=== PATIENT | male | born 1945 | race Caucasian/White ===

== ENCOUNTER 2021-02-01 15:38 | Inpatient (IN) ==
[2021-02-01] MEDS ORDERED: NS 0.9% 1000 ml BAG 1,000 ML IV.FLUID IV ONE (16:13)
[2021-02-01 17:29] LABS: ABS Lymphocytes 1.3 10^3/ul (1.0-4.8); ABS Monocytes 1.1 10^3/ul (0-0.8); ABS Neutrophils 8.9 10^3/ul (1.5-7.7); Hematocrit 41 % (42-52); Hemoglobin 14.3 g/dL (14.0-18.0); Lymphocyte % 11.3 %; Mean Corpuscular HGB Conc 35 g/dL (31-36); Mean Corpuscular Hemoglobin 35 pg (27-31); Mean Corpuscular Volume 99 fL (80-94); Mean Platelet Volume 7.2 fL (7.4-10.4); Platelet Count 153 10^3/uL (150-450); Red Blood Count 4.15 10^6 /uL (4.18-5.48); Red Cell Distribution Width 13 % (10-15); White Blood Count 11.2 10^3/uL (3.5-10.8)
[2021-02-01 17:44] LABS: ALT 21 U/L (7-52); AST 26 U/L (13-39); Albumin 3.8 g/dL (3.2-5.2); Albumin/Globulin Ratio 1.4 (1-3); Alkaline Phosphatase 50 U/L (35-149); Anion Gap 6 mmol/L (2-11); Blood Urea Nitrogen 20 mg/dL (6-24); C Reactive Protein 114.15 mg/L (<8.01); CO2 Carbon Dioxide 28 mmol/L (22-32); Calcium 8.7 mg/dL (8.6-10.3); Chloride 101 mmol/L (101-111); EGFR African American 72.4 (>60); EGFR Non-African American 59.9 (>60); Globulin 2.8 g/dL (2-4); Glucose 118 mg/dL (70-100); Sodium 135 mmol/L (135-145); Total Protein 6.6 g/dL (6.4-8.9)
[2021-02-01 17:45] LABS: Troponin I 0.01 ng/mL (<0.03)
[2021-02-01 17:46] LABS: INR 1.25 (0.82-1.09)
[2021-02-01 19:11] LABS: Urine Appearance Clear; Urine Bilirubin Negative (Negative); Urine Blood 1+ (Negative); Urine Color Yellow; Urine Glucose Negative (Negative); Urine Ketones Trace (Negative); Urine Nitrite Negative (Negative); Urine Protein Negative (Negative); Urine Specific Gravity 1.015 (1.002-1.030); Urine Urobilinogen Negative (Negative)
[2021-02-01 19:30] LABS: Urine Bacteria Absent (Absent); Urine Red Blood Cell Trace(0-2/hpf) (Absent); Urine Squamous Epithelial Cell Present (Absent); Urine White Blood Cell Trace(0-5/hpf) (Absent)
[2021-02-01] MEDS ORDERED: Ondansetron 4 mg VIAL 2 MG/ML 2 ml VIAL IV PRN (21:07)
[2021-02-01] MEDS ORDERED: Lactated Ringers 1000 ml BAG 1,000 ML IV ONE (21:14)
[2021-02-01] MEDS ORDERED: cefTRIAXone 1 gm/50 mL NS BAG 1 GM/50 ML BAG IV ONE (21:17)
[2021-02-01 21:56] LABS: Folate > 20.00 ng/mL (5.90-24.80)
[2021-02-01 21:57] LABS: Vitamin B12 485 pg/mL (180-914)
[2021-02-02 00:03] LABS: Influenza A Molecular Negative (Negative); Influenza B Molecular Negative (Negative)
[2021-02-02] MEDS: Enoxaparin 40 MG/0.4 ML SYR SUBCUT SCH ×2 (00:27→21:10)
[2021-02-02] MEDS: Mometasone/Formoter 200/5 MDI INH SCH ×3 (01:33→20:28)
[2021-02-02 07:46] LABS: ABS Lymphocytes 1.6 10^3/ul (1.0-4.8); ABS Monocytes 0.9 10^3/ul (0-0.8); Hematocrit 36 % (42-52); Hemoglobin 12.4 g/dL (14.0-18.0); Lymphocyte % 11.2 %; Mean Corpuscular HGB Conc 34 g/dL (31-36); Mean Corpuscular Hemoglobin 34 pg (27-31); Mean Corpuscular Volume 99 fL (80-94); Mean Platelet Volume 7.2 fL (7.4-10.4); Platelet Count 132 10^3/uL (150-450); Red Blood Count 3.67 10^6 /uL (4.18-5.48); Red Cell Distribution Width 13 % (10-15); White Blood Count 14.6 10^3/uL (3.5-10.8)
[2021-02-02 07:59] LABS: Albumin 3.1 g/dL (3.2-5.2); Albumin/Globulin Ratio 1.3 (1-3); C Reactive Protein 136.89 mg/L (<8.01); Calcium 7.8 mg/dL (8.6-10.3); EGFR African American 91.9 (>60); Globulin 2.4 g/dL (2-4); Indirect Bilirubin 0.4 mg/dL (0.3-1.0); Potassium 3.8 mmol/L (3.5-5.0); Total Bilirubin 0.5 mg/dL (0.2-1.0); Total Protein 5.5 g/dL (6.4-8.9)
[2021-02-02] MEDS ORDERED: Acyclovir IV 500 MG/10 ML 100 ML VIAL (500 MG) IVPB SCH (09:00)
[2021-02-02] MEDS ORDERED: CMCS: OMEGA-3 FATTY ACID 1000 mg(NF) PO SCH (09:00)
[2021-02-02] MEDS ORDERED: Albuterol/Ipratropium NEB.SOL (2.5/0.5 MG) 3 ML NEB.SOLN INH ONE (09:16)
[2021-02-02] MEDS ORDERED: Albuterol HFA INHALER 8 gm MDI INH PRN (09:17)
[2021-02-02] MEDS: Acyclovir IV 600 MG in NS 0.9% 100 ml BAG 100 ML IVPB SCH ×2 (11:15→17:19)
[2021-02-02] MEDS: DOXYcycline 100 MG in NS 0.9% 250 ml 250 ML IVPB SCH ×2 (12:36→23:15)
[2021-02-02] MEDS: NS 0.9% 1000 ml BAG 1,000 ML IV SCH (14:08)
[2021-02-02] MEDS: cefTRIAXone 2 GM ADDV.VIAL 2 GM in NS 0.9% 100 ml BAG 100 ML IV SCH (18:17)
[2021-02-02] MEDS ORDERED: Thiamine 100 MG/ML 2 ml VIAL 250 MG in NS 0.9% 100 ml BAG 100 ML IV SCH (20:00)
[2021-02-03] MEDS: Acyclovir IV 600 MG in NS 0.9% 100 ml BAG 100 ML IVPB SCH ×3 (01:55→17:29)
[2021-02-03] MEDS: cefTRIAXone 2 GM ADDV.VIAL 2 GM in NS 0.9% 100 ml BAG 100 ML IV SCH ×2 (05:32→18:52)
[2021-02-03 06:41] LABS: ABS Lymphocytes 1.6 10^3/ul (1.0-4.8); ABS Monocytes 0.6 10^3/ul (0-0.8); ABS Neutrophils 5.9 10^3/ul (1.5-7.7); Eosinophil % 0.2 %; Hematocrit 35 % (42-52); Hemoglobin 11.9 g/dL (14.0-18.0); Lymphocyte % 19.5 %; Mean Corpuscular HGB Conc 34 g/dL (31-36); Mean Corpuscular Hemoglobin 34 pg (27-31); Mean Corpuscular Volume 99 fL (80-94); Mean Platelet Volume 7.2 fL (7.4-10.4); Platelet Count 123 10^3/uL (150-450); Red Blood Count 3.51 10^6 /uL (4.18-5.48); Red Cell Distribution Width 13 % (10-15); White Blood Count 8.1 10^3/uL (3.5-10.8)
[2021-02-03 07:03] LABS: Calcium 7.5 mg/dL (8.6-10.3); EGFR African American 108.7 (>60); EGFR Non-African American 89.8 (>60); Magnesium 1.7 mg/dL (1.9-2.7); Potassium 3.5 mmol/L (3.5-5.0)
[2021-02-03] MEDS: Mometasone/Formoter 200/5 MDI INH SCH ×2 (07:14→20:07)
[2021-02-03] MEDS: CMCS: OMEGA-3 FATTY ACID 1000 mg(NF) PO SCH (10:48)
[2021-02-03] MEDS ORDERED: Magnesium Sulfate 2 gm BAG 2 GM/50 ML BAG IVPB ONE (11:13)
[2021-02-03] MEDS: DOXYcycline 100 MG in NS 0.9% 250 ml 250 ML IVPB SCH ×2 (12:35→22:39)
[2021-02-03] MEDS: NS 0.9% 1000 ml BAG 1,000 ML IV SCH (12:39)
[2021-02-03] MEDS: Enoxaparin 40 MG/0.4 ML SYR SUBCUT SCH (22:39)
[2021-02-03 22:52] LABS: Anaplasma phagocytophilum Negative (Negative); B. miyamotoi PCR, B Negative (Negative); Babesia divergens/MO-1 Negative (Negative); Babesia ducani Negative (Negative); Ehrlichia chaffeensis Negative (Negative); Ehrlichia ewingii/canis Negative (Negative); Ehrlichia muris eauclairensis Negative (Negative)
[2021-02-04] MEDS: NS 0.9% 1000 ml BAG 1,000 ML IV SCH ×2 (00:58→16:49)
[2021-02-04] MEDS: Acyclovir IV 600 MG in NS 0.9% 100 ml BAG 100 ML IVPB SCH ×3 (02:58→18:00)
[2021-02-04] MEDS: cefTRIAXone 2 GM ADDV.VIAL 2 GM in NS 0.9% 100 ml BAG 100 ML IV SCH ×2 (05:16→17:22)
[2021-02-04 05:37] LABS: Hematocrit 36 % (42-52); Hemoglobin 12.3 g/dL (14.0-18.0); Mean Corpuscular HGB Conc 35 g/dL (31-36); Mean Corpuscular Hemoglobin 34 pg (27-31); Mean Corpuscular Volume 98 fL (80-94); Mean Platelet Volume 7.1 fL (7.4-10.4); Platelet Count 139 10^3/uL (150-450); Red Blood Count 3.64 10^6 /uL (4.18-5.48); Red Cell Distribution Width 13 % (10-15); White Blood Count 6.8 10^3/uL (3.5-10.8)
[2021-02-04 05:53] LABS: C Reactive Protein 126.46 mg/L (<8.01); Calcium 7.5 mg/dL (8.6-10.3); EGFR African American 110.2 (>60); EGFR Non-African American 91.1 (>60); Potassium 3.3 mmol/L (3.5-5.0)
[2021-02-04] MEDS: Mometasone/Formoter 200/5 MDI INH SCH ×2 (06:59→19:51)
[2021-02-04] MEDS ORDERED: CALCIUM GLUCONATE 1GM/50ML NS 1 GM/50 ML BAG IV ONE (09:30)
[2021-02-04] MEDS: CMCS: OMEGA-3 FATTY ACID 1000 mg(NF) PO SCH (09:32)
[2021-02-04] MEDS ORDERED: Potassium Chlor 20 meq TAB.ER PO SCH (10:00)
[2021-02-04] MEDS ORDERED: Potassium Chloride LIQUID 20 MEQ/15 ML LIQUID PO ONE (12:00)
[2021-02-04] MEDS: DOXYcycline 100 MG in NS 0.9% 250 ml 250 ML IVPB SCH ×2 (12:32→22:02)
[2021-02-04] MEDS: Enoxaparin 40 MG/0.4 ML SYR SUBCUT SCH (22:02)
[2021-02-05] MEDS: Acyclovir IV 600 MG in NS 0.9% 100 ml BAG 100 ML IVPB SCH ×3 (02:47→17:30)
[2021-02-05 05:15] LABS: ABS Eosinophils 0.1 10^3/ul (0-0.6); ABS Monocytes 0.7 10^3/ul (0-0.8); ABS Neutrophils 4.9 10^3/ul (1.5-7.7); Eosinophil % 0.7 %; Hematocrit 36 % (42-52); Hemoglobin 12.7 g/dL (14.0-18.0); Lymphocyte % 25.9 %; Mean Corpuscular HGB Conc 35 g/dL (31-36); Mean Corpuscular Hemoglobin 34 pg (27-31); Mean Corpuscular Volume 98 fL (80-94); Mean Platelet Volume 7.9 fL (7.4-10.4); Platelet Count 163 10^3/uL (150-450); Red Blood Count 3.71 10^6 /uL (4.18-5.48); Red Cell Distribution Width 13 % (10-15); White Blood Count 7.7 10^3/uL (3.5-10.8)
[2021-02-05 05:30] LABS: Calcium 7.9 mg/dL (8.6-10.3); EGFR African American 122.2 (>60); Magnesium 1.9 mg/dL (1.9-2.7); Potassium 3.6 mmol/L (3.5-5.0)
[2021-02-05] MEDS: cefTRIAXone 2 GM ADDV.VIAL 2 GM in NS 0.9% 100 ml BAG 100 ML IV SCH (05:35)
[2021-02-05] MEDS: CMCS: OMEGA-3 FATTY ACID 1000 mg(NF) PO SCH (08:01)
[2021-02-05] MEDS: Mometasone/Formoter 200/5 MDI INH SCH ×2 (08:15→20:04)
[2021-02-05] MEDS ORDERED: Potassium Chlor 20 meq TAB.ER PO ONE (08:16)
[2021-02-05] MEDS: NS 0.9% 1000 ml BAG 1,000 ML IV SCH (10:37)
[2021-02-05] MEDS: DOXYcycline 100 MG in NS 0.9% 250 ml 250 ML IVPB SCH (13:15)
[2021-02-05 21:09] LABS: IgG Immunoblot Negative (Negative); IgM Immunoblot Negative (Negative)
[2021-02-05] MEDS: Enoxaparin 40 MG/0.4 ML SYR SUBCUT SCH (22:53)
[2021-02-06] MEDS: Acyclovir IV 600 MG in NS 0.9% 100 ml BAG 100 ML IVPB SCH ×3 (01:38→16:59)
[2021-02-06] MEDS: NS 0.9% 1000 ml BAG 1,000 ML IV SCH ×2 (05:07→15:30)
[2021-02-06 06:50] LABS: ABS Eosinophils 0.1 10^3/ul (0-0.6); ABS Lymphocytes 2.5 10^3/ul (1.0-4.8); ABS Monocytes 0.7 10^3/ul (0-0.8); ABS Neutrophils 3.6 10^3/ul (1.5-7.7); Hematocrit 33 % (42-52); Hemoglobin 11.9 g/dL (14.0-18.0); Lymphocyte % 36.1 %; Mean Corpuscular HGB Conc 36 g/dL (31-36); Mean Corpuscular Hemoglobin 35 pg (27-31); Mean Corpuscular Volume 98 fL (80-94); Mean Platelet Volume 7.4 fL (7.4-10.4); Nucleated Red Blood Cells % 0.1; Platelet Count 181 10^3/uL (150-450); Red Blood Count 3.38 10^6 /uL (4.18-5.48); Red Cell Distribution Width 13 % (10-15)
[2021-02-06 07:06] LABS: Albumin 2.8 g/dL (3.2-5.2); Albumin/Globulin Ratio 1.2 (1-3); C Reactive Protein 65.64 mg/L (<8.01); Calcium 7.8 mg/dL (8.6-10.3); EGFR African American 130.2 (>60); EGFR Non-African American 107.6 (>60); Globulin 2.4 g/dL (2-4); Magnesium 1.9 mg/dL (1.9-2.7); Potassium 3.7 mmol/L (3.5-5.0); Total Bilirubin 0.4 mg/dL (0.2-1.0); Total Protein 5.2 g/dL (6.4-8.9)
[2021-02-06] MEDS: Mometasone/Formoter 200/5 MDI INH SCH ×2 (08:51→20:15)
[2021-02-06] MEDS: CMCS: OMEGA-3 FATTY ACID 1000 mg(NF) PO SCH (09:32)
[2021-02-06] MEDS ORDERED: Potassium Chlor 10 meq TAB PO ONE (09:57)
[2021-02-06] MEDS: Enoxaparin 40 MG/0.4 ML SYR SUBCUT SCH (20:37)
[2021-02-07] MEDS ORDERED: diPHENhydraMINE 25 mg TAB PO ONE (00:11)
[2021-02-07] MEDS: Acyclovir IV 600 MG in NS 0.9% 100 ml BAG 100 ML IVPB SCH ×2 (01:25→13:03)
[2021-02-07] MEDS: NS 0.9% 1000 ml BAG 1,000 ML IV SCH ×2 (02:32→13:03)
[2021-02-07] MEDS: Mometasone/Formoter 200/5 MDI INH SCH ×2 (07:15→19:15)
[2021-02-07] MEDS: CMCS: OMEGA-3 FATTY ACID 1000 mg(NF) PO SCH (10:03)
[2021-02-07] MEDS ORDERED: Polyethylene Glycol 3350 17 GM PACKET PO PRN (20:45)
[2021-02-07] MEDS: Enoxaparin 40 MG/0.4 ML SYR SUBCUT SCH (21:30)
[2021-02-08] MEDS: Mometasone/Formoter 200/5 MDI INH SCH ×2 (09:12→20:02)
[2021-02-08] MEDS: CMCS: OMEGA-3 FATTY ACID 1000 mg(NF) PO SCH (09:24)
[2021-02-08] MEDS: Enoxaparin 40 MG/0.4 ML SYR SUBCUT SCH (23:59)
[2021-02-09] MEDS: Mometasone/Formoter 200/5 MDI INH SCH (09:23)
[2021-02-09] MEDS: CMCS: OMEGA-3 FATTY ACID 1000 mg(NF) PO SCH (09:46)
[2021-02-09 10:07] VITALS: BP 135/59
== END 2021-02-09 11:10 | disposition home health service (06) | DRG 871 ==
LOC: ED 15:38 → MED 15:38
PROVIDERS: ADMIT Hospitalist; ATTEND Internal Medicine

== ENCOUNTER 2021-03-28 18:27 | Inpatient (IN) ==
[2021-03-28 21:46] LABS: Hematocrit 44 % (42-52); Mean Corpuscular HGB Conc 34 g/dL (31-36); Mean Corpuscular Hemoglobin 34 pg (27-31); Mean Corpuscular Volume 99 fL (80-94); Mean Platelet Volume 7.5 fL (7.4-10.4); Platelet Count 223 10^3/uL (150-450); Red Blood Count 4.39 10^6 /uL (4.18-5.48); Red Cell Distribution Width 14 % (10-15); Venous Bicarbonate HCO3 25.1 mmol/L (24-28); White Blood Count 25.7 10^3/uL (3.5-10.8)
[2021-03-28 22:05] LABS: Influenza A Molecular Negative (Negative); Influenza B Molecular Negative (Negative); Rapid COVID-19 Molecular Undetected (Undetected)
[2021-03-28 22:05] LABS: ALT 19 U/L (7-52); Albumin 4.4 g/dL (3.2-5.2); Albumin/Globulin Ratio 1.2 (1-3); Alkaline Phosphatase 60 U/L (35-149); Blood Urea Nitrogen 25 mg/dL (6-24); CO2 Carbon Dioxide 28 mmol/L (22-32); Calcium 9.1 mg/dL (8.6-10.3); Chloride 100 mmol/L (101-111); EGFR African American 80.2 (>60); EGFR Non-African American 66.3 (>60); Globulin 3.6 g/dL (2-4); Glucose 80 mg/dL (70-100); Sodium 136 mmol/L (135-145)
[2021-03-28 22:13] LABS: Anion Gap 8 mmol/L (2-11); Troponin I 0.03 ng/mL (<0.03)
[2021-03-28] MEDS ORDERED: Piperacillin/Tazobac ADVAN 3.375 GM in NS 0.9% 100 ml BAG 100 ML IVPB ONE (22:21)
[2021-03-28] MEDS ORDERED: Lactated Ringers 1000 ml BAG IV.FLUID IV ONE (22:21)
[2021-03-28 22:23] LABS: Ferritin 161.8 ng/mL (24-336)
[2021-03-28 22:24] LABS: Activated Partial Thrombo Time 35.1 seconds (26.0-38.0); INR 1.19 (0.86-1.15)
[2021-03-28 22:24] LABS: ABS Basophils 0.1 10^3/ul (0-0.2); ABS Eosinophils 0.1 10^3/ul (0-0.6); ABS Lymphocytes 2.9 10^3/ul (1.0-4.8); ABS Monocytes 1.9 10^3/ul (0-0.8); ABS Neutrophils 20.8 10^3/ul (1.5-7.7); Eosinophil % 0.4 %; Lymphocyte % 11.1 %
[2021-03-28] MEDS ORDERED: Vancomycin 1,250 MG in NS 0.9% 250 ml 250 ML IVPB ONE (23:00)
[2021-03-28] MEDS ORDERED: Lactated Ringers 1000 ml BAG 1,000 ML IV ONE (23:38)
[2021-03-28] MEDS ORDERED: Ondansetron 4 mg VIAL 2 MG/ML 2 ml VIAL IV PRN (23:38)
[2021-03-28] MEDS ORDERED: Albuterol HFA INHALER 8 gm MDI INH PRN (23:38)
[2021-03-29 00:51] LABS: Urine Appearance Clear; Urine Bilirubin Negative (Negative); Urine Blood Negative (Negative); Urine Color Yellow; Urine Glucose Negative (Negative); Urine Ketones Negative (Negative); Urine Nitrite Negative (Negative); Urine Protein 1+(30 mg/dL) (Negative); Urine Specific Gravity 1.021 (1.002-1.030); Urine Urobilinogen Negative (Negative)
[2021-03-29 01:19] LABS: Urine Bacteria Absent (Absent); Urine Red Blood Cell Trace(0-2/hpf) (Absent); Urine Squamous Epithelial Cell Present (Absent); Urine White Blood Cell Trace(0-5/hpf) (Absent)
[2021-03-29 04:35] LABS: ABS Basophils 0.1 10^3/ul (0-0.2); ABS Eosinophils 0.1 10^3/ul (0-0.6); ABS Lymphocytes 2.8 10^3/ul (1.0-4.8); ABS Monocytes 1.2 10^3/ul (0-0.8); Eosinophil % 0.8 %; Hematocrit 37 % (42-52); Hemoglobin 12.6 g/dL (14.0-18.0); Lymphocyte % 14.6 %; Mean Corpuscular HGB Conc 34 g/dL (31-36); Mean Corpuscular Hemoglobin 34 pg (27-31); Mean Corpuscular Volume 100 fL (80-94); Mean Platelet Volume 6.9 fL (7.4-10.4); Platelet Count 189 10^3/uL (150-450); Red Blood Count 3.75 10^6 /uL (4.18-5.48); Red Cell Distribution Width 13 % (10-15); White Blood Count 19.3 10^3/uL (3.5-10.8)
[2021-03-29 04:41] LABS: Calcium 8.2 mg/dL (8.6-10.3)
[2021-03-29 04:42] LABS: INR 1.32 (0.86-1.15)
[2021-03-29 04:47] LABS: EGFR African American 82.9 (>60); EGFR Non-African American 68.5 (>60)
[2021-03-29] MEDS: Heparin 5000 UNITS/ML 1 mL VIAL SUBCUT SCH ×3 (06:26→21:12)
[2021-03-29] MEDS: cefTRIAXone 1 gm/50 mL NS BAG 1 GM/50 ML BAG IVPB SCH (06:26)
[2021-03-29] MEDS: Multivitamins/Minerals TAB PO SCH (08:34)
[2021-03-29] MEDS: CMCS: OMEGA-3 FATTY ACID 1000 mg(NF) PO SCH (08:34)
[2021-03-29] MEDS: Mometasone/Formoter 200/5 MDI INH SCH ×2 (09:32→21:33)
[2021-03-29 13:32] LABS: Erythrocyte Sed Rate 47 mm/Hr (0-19)
[2021-03-29] MEDS ORDERED: Iohexol 300 (CONTRAST) 10 ML SDV IV ONE (19:00)
[2021-03-30 01:04] LABS: HIV 4th Generation Nonreactive (Nonreactive)
[2021-03-30] MEDS: Heparin 5000 UNITS/ML 1 mL VIAL SUBCUT SCH ×3 (06:01→23:18)
[2021-03-30] MEDS: cefTRIAXone 1 gm/50 mL NS BAG 1 GM/50 ML BAG IVPB SCH (06:02)
[2021-03-30 06:13] LABS: ABS Eosinophils 0.2 10^3/ul (0-0.6); ABS Lymphocytes 2.4 10^3/ul (1.0-4.8); ABS Monocytes 1.2 10^3/ul (0-0.8); ABS Neutrophils 8.9 10^3/ul (1.5-7.7); Eosinophil % 1.3 %; Hematocrit 35 % (42-52); Hemoglobin 11.7 g/dL (14.0-18.0); Lymphocyte % 18.9 %; Mean Corpuscular HGB Conc 33 g/dL (31-36); Mean Corpuscular Hemoglobin 34 pg (27-31); Mean Corpuscular Volume 101 fL (80-94); Mean Platelet Volume 7.3 fL (7.4-10.4); Platelet Count 173 10^3/uL (150-450); Red Blood Count 3.48 10^6 /uL (4.18-5.48); Red Cell Distribution Width 13 % (10-15); White Blood Count 12.8 10^3/uL (3.5-10.8)
[2021-03-30 06:32] LABS: EGFR Non-African American 81.8 (>60); Potassium 3.6 mmol/L (3.5-5.0)
[2021-03-30] MEDS: CMCS: OMEGA-3 FATTY ACID 1000 mg(NF) PO SCH (07:40)
[2021-03-30] MEDS: Multivitamins/Minerals TAB PO SCH (07:40)
[2021-03-30] MEDS: Mometasone/Formoter 200/5 MDI INH SCH ×2 (08:38→22:27)
[2021-03-30 22:52] LABS: IgG Immunoblot Negative (Negative); IgM Immunoblot Positive (Negative)
[2021-03-31 04:02] LABS: Anaplasma phagocytophilum Negative (Negative); B. miyamotoi PCR, B Negative (Negative); Babesia divergens/MO-1 Negative (Negative); Babesia ducani Negative (Negative); Ehrlichia chaffeensis Negative (Negative); Ehrlichia ewingii/canis Negative (Negative); Ehrlichia muris eauclairensis Negative (Negative)
[2021-03-31 04:20] LABS: ABS Eosinophils 0.2 10^3/ul (0-0.6); ABS Lymphocytes 2.2 10^3/ul (1.0-4.8); ABS Monocytes 0.9 10^3/ul (0-0.8); ABS Neutrophils 7.4 10^3/ul (1.5-7.7); Eosinophil % 2.1 %; Hematocrit 36 % (42-52); Hemoglobin 12.4 g/dL (14.0-18.0); Lymphocyte % 20.6 %; Mean Corpuscular HGB Conc 34 g/dL (31-36); Mean Corpuscular Hemoglobin 34 pg (27-31); Mean Corpuscular Volume 100 fL (80-94); Mean Platelet Volume 7.2 fL (7.4-10.4); Platelet Count 187 10^3/uL (150-450); Red Blood Count 3.65 10^6 /uL (4.18-5.48); Red Cell Distribution Width 13 % (10-15); White Blood Count 10.8 10^3/uL (3.5-10.8)
[2021-03-31] MEDS: cefTRIAXone 1 gm/50 mL NS BAG 1 GM/50 ML BAG IVPB SCH (05:38)
[2021-03-31] MEDS: Heparin 5000 UNITS/ML 1 mL VIAL SUBCUT SCH (05:43)
[2021-03-31] MEDS: Multivitamins/Minerals TAB PO SCH (07:50)
[2021-03-31] MEDS: CMCS: OMEGA-3 FATTY ACID 1000 mg(NF) PO SCH (07:52)
[2021-03-31] MEDS: Mometasone/Formoter 200/5 MDI INH SCH (08:37)
[2021-03-31 11:50] VITALS: BP 139/55
[2021-03-31 15:06] LABS: C-ANCA Negative (Negative); P-ANCA Negative (Negative)
== END 2021-03-31 13:25 | disposition home or self-care (01) | DRG 871 ==
LOC: ED 18:27 → MED 18:27
PROVIDERS: ADMIT Student in an Organized Health Care Education/Training Program; ATTEND Internal Medicine

== ENCOUNTER 2022-12-18 20:14 | Inpatient (IN) ==
[2022-12-18] MEDS ORDERED: Iodixanol (CONTRAST) 320 MG/ML 100 ML SDV IV ONE (21:35)
[2022-12-18 22:13] LABS: ABS Basophils 0.1 10^3/uL (0.0-0.1); ABS Lymphocytes 3.3 10^3/uL (1.0-4.8); ABS Neutrophils 5.4 10^3/uL (1.5-7.6); ABS Nucleated RBC 0.01 10^3/ul; Eosinophil % 0.4 %; Hematocrit 41.9 % (38-53); Hemoglobin 14.2 g/dL (13.2-16.3); Lymphocyte % 34.1 %; Mean Corpuscular Hemoglobin 32.5 pg (27-33); Mean Corpuscular Hgb Conc 33.9 g/dL (31-36); Mean Corpuscular Volume 95.8 fL (80-97); Mean Platelet Volume 6.5 fL (7.5-11.2); Nucleated Red Blood Cells % 0.1 /100 WBC (0.0-0.4); Platelet Count 180 10^3/uL (150-450); Red Blood Count 4.38 10^6/uL (4.06-5.63); Red Cell Distribution Width 12.8 % (12-17); White Blood Count 9.8 10^3/uL (3.6-10.2)
[2022-12-18 22:50] LABS: Calcium 7.8 mg/dL (8.6-10.3); Creatinine, Serum 1.05 mg/dL (0.67-1.17); eGFR CKD-EPI 72.2 (>60)
[2022-12-18 23:55] LABS: C Reactive Protein 6.92 mg/L (<8.01)
[2022-12-19 01:17] LABS: High Sensitivity Troponin 1 Hr 10 pg/mL (<20)
[2022-12-19] MEDS ORDERED: NS 0.9% IVPB SCH (03:30)
[2022-12-19] MEDS ORDERED: ACYCLOVIR IVPB SCH (03:30)
[2022-12-19 07:13] LABS: ABS Lymphocytes 3.5 10^3/uL (1.0-4.8); ABS Monocytes 0.8 10^3/uL (0.0-1.1); ABS Neutrophils 4.9 10^3/uL (1.5-7.6); ABS Nucleated RBC 0.01 10^3/ul; Eosinophil % 0.5 %; Hematocrit 46.4 % (38-53); Hemoglobin 15.4 g/dL (13.2-16.3); Mean Corpuscular Hemoglobin 33.1 pg (27-33); Mean Corpuscular Hgb Conc 33.1 g/dL (31-36); Mean Corpuscular Volume 99.8 fL (80-97); Mean Platelet Volume 7.1 fL (7.5-11.2); Nucleated Red Blood Cells % 0.2 /100 WBC (0.0-0.4); Platelet Count 148 10^3/uL (150-450); Red Blood Count 4.65 10^6/uL (4.06-5.63); White Blood Count 9.3 10^3/uL (3.6-10.2)
[2022-12-19] MEDS: Mometasone/Formoter 200/5 MDI INH SCH ×2 (07:16→18:50)
[2022-12-19 11:09] LABS: Blood Urea Nitrogen 19 mg/dL (6-24); CO2 Carbon Dioxide 26 mmol/L (22-32); Calcium 8.7 mg/dL (8.6-10.3); Chloride 101 mmol/L (101-111); Creatinine, Serum 1.01 mg/dL (0.67-1.17); Glucose 81 mg/dL (70-100); Magnesium 2.1 mg/dL (1.9-2.7); Sodium 136 mmol/L (135-145); eGFR CKD-EPI 75.7 (>60)
[2022-12-19 11:26] LABS: Anion Gap 9 mmol/L (2-16)
[2022-12-19] MEDS: ACYCLOVIR IVPB SCH ×3 (13:57→22:38)
[2022-12-19] MEDS: NS 0.9% IVPB SCH ×3 (13:57→22:38)
[2022-12-19 16:48] LABS: Urine Appearance Clear; Urine Bilirubin Negative (Negative); Urine Blood Negative (Negative); Urine Color Yellow; Urine Glucose Negative (Negative); Urine Ketones 1+ (Negative); Urine Nitrite Negative (Negative); Urine Protein 1+(30 mg/dL) (Negative); Urine Specific Gravity 1.038 (1.002-1.030); Urine Urobilinogen Negative (Negative)
[2022-12-19 16:56] LABS: Urine Bacteria Absent (Absent); Urine Red Blood Cell 2+(6-10/hpf) (Absent); Urine Squamous Epithelial Cell Present (Absent); Urine Transitional Epithelial Present (Absent); Urine White Blood Cell 2+(11-20/hpf) (Absent)
[2022-12-19] MEDS: PREDNISOLONE 1% LEFT EYE SCH ×2 (18:27→20:47)
[2022-12-19] MEDS ORDERED: Acetaminophen IV 1 GM/100ML 1,000 MG/100 ML BAG IV PRN (21:05)
[2022-12-20] MEDS: NS 0.9% IVPB SCH ×2 (04:26→13:20)
[2022-12-20] MEDS: ACYCLOVIR IVPB SCH ×2 (04:26→13:20)
[2022-12-20 06:04] LABS: Hematocrit 40.4 % (38-53); Hemoglobin 13.9 g/dL (13.2-16.3); Mean Corpuscular Hemoglobin 32.5 pg (27-33); Mean Corpuscular Hgb Conc 34.5 g/dL (31-36); Mean Corpuscular Volume 94.3 fL (80-97); Mean Platelet Volume 6.9 fL (7.5-11.2); Platelet Count 202 10^3/uL (150-450); Red Blood Count 4.29 10^6/uL (4.06-5.63); Red Cell Distribution Width 12.5 % (12-17); White Blood Count 10.6 10^3/uL (3.6-10.2)
[2022-12-20 06:23] LABS: Calcium 8.4 mg/dL (8.6-10.3); Creatinine, Serum 1.39 mg/dL (0.67-1.17); Magnesium 2.1 mg/dL (1.9-2.7); Potassium 3.9 mmol/L (3.5-5.0); eGFR CKD-EPI 51.6 (>60)
[2022-12-20] MEDS: Mometasone/Formoter 200/5 MDI INH SCH ×2 (07:25→19:03)
[2022-12-20] MEDS ORDERED: NS 0.9% 1000 ml BAG 1,000 ML IV SCH (07:30)
[2022-12-20] MEDS ORDERED: NS 0.9% 500 ml BAG 500 ML IV SCH (08:00)
[2022-12-20] MEDS: PREDNISOLONE 1% LEFT EYE SCH ×4 (08:45→21:34)
[2022-12-20 08:55] LABS: Albumin 3.6 g/dL (3.2-5.2); Albumin/Globulin Ratio 1.7 (1-3); Direct Bilirubin 0.1 mg/dL (0.03-0.18); Globulin 2.1 g/dL (2-4); Indirect Bilirubin 0.6 mg/dL (0.3-1.0); Total Bilirubin 0.7 mg/dL (0.2-1.0); Total Protein 5.7 g/dL (6.4-8.9)
[2022-12-20] MEDS ORDERED: Aspirin EC 325 mg TAB.EC PO ONE (12:21)
[2022-12-20] MEDS ORDERED: NS 0.9% IVPB SCH (17:00)
[2022-12-20] MEDS ORDERED: ACYCLOVIR IVPB SCH (17:00)
[2022-12-20 17:36] LABS: Body Fluid Source Cerebral Spinal
[2022-12-20 17:56] LABS: CSF Glucose 65 mg/dL (40-70)
[2022-12-20 17:58] LABS: Body Fluid Appearance Clear; Body Fluid Color Colorless; CSF Tube # 4
[2022-12-20 18:05] LABS: Body Fluid WBC 127 /mcL
[2022-12-20 20:04] LABS: Body Fluid Mono 8 %; Body Fluid Total Cells Counted 200
[2022-12-21] MEDS: NS 0.9% 500 ml BAG 500 ML IV SCH ×2 (01:40→13:41)
[2022-12-21] MEDS: NS 0.9% IVPB SCH ×2 (02:31→15:36)
[2022-12-21] MEDS: ACYCLOVIR IVPB SCH ×2 (02:31→15:36)
[2022-12-21 06:41] LABS: Hemoglobin 13.4 g/dL (13.2-16.3); Mean Corpuscular Hgb Conc 34.3 g/dL (31-36); Mean Corpuscular Volume 96.1 fL (80-97); Mean Platelet Volume 6.5 fL (7.5-11.2); Platelet Count 223 10^3/uL (150-450); Red Blood Count 4.05 10^6/uL (4.06-5.63); Red Cell Distribution Width 12.6 % (12-17); White Blood Count 10.6 10^3/uL (3.6-10.2)
[2022-12-21 07:13] LABS: Calcium 8.3 mg/dL (8.6-10.3); Creatinine, Serum 1.4 mg/dL (0.67-1.17); Potassium 3.9 mmol/L (3.5-5.0); eGFR CKD-EPI 51.1 (>60)
[2022-12-21] MEDS: Mometasone/Formoter 200/5 MDI INH SCH ×2 (07:15→19:17)
[2022-12-21] MEDS: PREDNISOLONE 1% LEFT EYE SCH ×2 (09:45→15:45)
[2022-12-21] MEDS ORDERED: Valproic Acid IV 500 MG in NS 0.9% 100 ml BAG 100 ML IVPB ONE ×2 (11:30→18:03)
[2022-12-21] MEDS ORDERED: Nicotine PATCH 7 MG/24 HR PATCH TRANSDERM PRN (16:00)
[2022-12-21] MEDS: prednisoLONE 1% OPHTH.SUSP 5 ML OPHTH.SUSP RIGHT EYE SCH (21:25)
[2022-12-22] MEDS: NS 0.9% 500 ml BAG 500 ML IV SCH ×2 (01:32→13:27)
[2022-12-22] MEDS: NS 0.9% IVPB SCH ×2 (02:07→14:08)
[2022-12-22] MEDS: ACYCLOVIR IVPB SCH ×2 (02:07→14:08)
[2022-12-22 06:24] LABS: Hematocrit 38.4 % (38-53); Mean Corpuscular Hemoglobin 32.8 pg (27-33); Mean Corpuscular Hgb Conc 33.8 g/dL (31-36); Mean Corpuscular Volume 96.9 fL (80-97); Platelet Count 244 10^3/uL (150-450); Red Blood Count 3.97 10^6/uL (4.06-5.63); Red Cell Distribution Width 12.7 % (12-17); White Blood Count 11.1 10^3/uL (3.6-10.2)
[2022-12-22 06:47] LABS: Calcium 8.3 mg/dL (8.6-10.3); Creatinine, Serum 1.22 mg/dL (0.67-1.17); Magnesium 1.9 mg/dL (1.9-2.7); Potassium 3.6 mmol/L (3.5-5.0); eGFR CKD-EPI 60.3 (>60)
[2022-12-22] MEDS: Mometasone/Formoter 200/5 MDI INH SCH ×2 (07:22→20:08)
[2022-12-22] MEDS: prednisoLONE 1% OPHTH.SUSP 5 ML OPHTH.SUSP RIGHT EYE SCH ×3 (10:21→22:59)
[2022-12-23] MEDS: NS 0.9% 500 ml BAG 500 ML IV SCH ×2 (01:08→14:50)
[2022-12-23] MEDS: NS 0.9% IVPB SCH ×2 (01:45→14:50)
[2022-12-23] MEDS: ACYCLOVIR IVPB SCH ×2 (01:45→14:50)
[2022-12-23] MEDS: Mometasone/Formoter 200/5 MDI INH SCH ×2 (07:40→19:12)
[2022-12-23 08:17] LABS: Hematocrit 37.6 % (38-53); Hemoglobin 12.9 g/dL (13.2-16.3); Mean Corpuscular Hemoglobin 32.9 pg (27-33); Mean Corpuscular Hgb Conc 34.4 g/dL (31-36); Mean Corpuscular Volume 95.4 fL (80-97); Mean Platelet Volume 6.7 fL (7.5-11.2); Platelet Count 243 10^3/uL (150-450); Red Blood Count 3.94 10^6/uL (4.06-5.63); Red Cell Distribution Width 12.8 % (12-17); White Blood Count 10.2 10^3/uL (3.6-10.2)
[2022-12-23 08:59] LABS: Albumin 3.3 g/dL (3.2-5.2); Albumin/Globulin Ratio 1.7 (1-3); Calcium 8.2 mg/dL (8.6-10.3); Creatinine, Serum 1.08 mg/dL (0.67-1.17); Globulin 1.9 g/dL (2-4); Potassium 3.6 mmol/L (3.5-5.0); Total Bilirubin 0.5 mg/dL (0.2-1.0); Total Protein 5.2 g/dL (6.4-8.9); eGFR CKD-EPI 69.8 (>60)
[2022-12-23] MEDS: prednisoLONE 1% OPHTH.SUSP 5 ML OPHTH.SUSP RIGHT EYE SCH ×3 (10:43→20:29)
[2022-12-23 16:14] LABS: HSV 1 PCR, CSF Negative (Negative); HSV 2 PCR, CSF Negative (Negative)
[2022-12-24] MEDS: NS 0.9% 500 ml BAG 500 ML IV SCH ×2 (01:40→16:22)
[2022-12-24] MEDS: ACYCLOVIR IVPB SCH ×3 (05:03→17:39)
[2022-12-24] MEDS: NS 0.9% IVPB SCH ×3 (05:03→17:39)
[2022-12-24] MEDS: Mometasone/Formoter 200/5 MDI INH SCH ×2 (07:59→19:29)
[2022-12-24] MEDS: prednisoLONE 1% OPHTH.SUSP 5 ML OPHTH.SUSP RIGHT EYE SCH ×3 (09:46→22:51)
[2022-12-24 14:46] LABS: Varicella Zoster Source CSF; Varicella Zoster Virus PCR Negative (Negative)
[2022-12-25] MEDS: NS 0.9% 500 ml BAG 500 ML IV SCH (04:49)
[2022-12-25] MEDS: NS 0.9% IVPB SCH (05:20)
[2022-12-25] MEDS: ACYCLOVIR IVPB SCH (05:20)
[2022-12-25] MEDS: Mometasone/Formoter 200/5 MDI INH SCH (07:17)
[2022-12-25] MEDS: prednisoLONE 1% OPHTH.SUSP 5 ML OPHTH.SUSP RIGHT EYE SCH ×2 (08:46→13:07)
[2022-12-25 13:54] VITALS: BP 149/64
== END 2022-12-25 16:00 | disposition home or self-care (01) | DRG 97 ==
LOC: ED 20:14 → EDHOLD 20:14 → SUATTDRO 12-19 00:35 → MED 12-19 03:57 → SUATTDRO 12-20 14:17
PROVIDERS: ADMIT Internal Medicine; ATTEND Internal Medicine

== ENCOUNTER 2024-05-13 12:07 | Observation (INO) ==
[2024-05-13 12:53] LABS: INR 1.11 (0.85-1.14)
[2024-05-13 12:58] LABS: ABS Basophils 0.1 10^3/uL (0.0-0.1); ABS Eosinophils 0.2 10^3/uL (0.0-0.5); ABS Lymphocytes 3.6 10^3/uL (1.0-4.8); ABS Monocytes 1.2 10^3/uL (0.0-1.1); ABS Nucleated RBC 0.01 10^3/ul; Eosinophil % 0.9 %; Hematocrit 39.8 % (38-53); Hemoglobin 13.7 g/dL (13.2-16.3); Mean Corpuscular Hemoglobin 32.4 pg (27-33); Mean Corpuscular Hgb Conc 34.5 g/dL (31-36); Mean Corpuscular Volume 93.9 fL (80-97); Mean Platelet Volume 6.6 fL (7.5-11.2); Platelet Count 327 10^3/uL (150-450); Red Blood Count 4.24 10^6/uL (4.06-5.63); Red Cell Distribution Width 13.2 % (12-17); White Blood Count 19.1 10^3/uL (3.6-10.2)
[2024-05-13 13:25] LABS: Albumin 4.2 g/dL (3.2-5.2); Albumin/Globulin Ratio 1.4 (1-3); Calcium 9.4 mg/dL (8.6-10.3); Creatinine, Serum 2.36 mg/dL (0.67-1.17); Total Bilirubin 0.4 mg/dL (0.2-1.0); Total Protein 7.2 g/dL (6.4-8.9); eGFR CKD-EPI 27.2 (>60)
[2024-05-13 14:35] LABS: High Sensitivity Troponin 1 Hr 7 pg/mL (<20)
[2024-05-13] MEDS: Pantoprazole VIAL 40 MG VIAL IV ONE (14:40)
[2024-05-13] MEDS: Metoclopramide 5 MG/ML VIAL (10 mg) IV ONE ×2 (14:40→20:21)
[2024-05-13] MEDS: Lactated Ringers 1000 ml BAG 1,000 ML IV ONE (14:41)
[2024-05-13 14:47] LABS: C Reactive Protein 21.41 mg/L (<8.01)
[2024-05-13 15:39] LABS: Urine Appearance Clear; Urine Bilirubin Negative (Negative); Urine Blood Negative (Negative); Urine Color Light-Yellow; Urine Glucose Negative (Negative); Urine Ketones Negative (Negative); Urine Nitrite Negative (Negative); Urine Protein 1+ (>=30 mg/dL) (Negative); Urine Specific Gravity 1.019 (1.002-1.030); Urine Urobilinogen Negative (Negative)
[2024-05-13 15:44] LABS: Urine Bacteria Absent /HPF (Absent); Urine Red Blood Cell 1+(3-5/hpf) /HPF (0-Trace); Urine White Blood Cell Trace(0-5/hpf) /HPF (0-Trace)
[2024-05-13] MEDS: cefTRIAXone 1 gm/50 mL D5W 1 GM/50 ML BAG IV SCH ×2 (18:20→19:03)
[2024-05-13] MEDS: Lactated Ringers 1000 ml BAG 1,000 ML IV SCH (20:18)
[2024-05-13] MEDS: Pantoprazole VIAL 40 MG VIAL IV SCH (21:15)
[2024-05-13] MEDS: Ondansetron 4 mg VIAL 2 MG/ML 2 ml VIAL IV ONE (21:23)
[2024-05-14 06:24] LABS: ABS Basophils 0.1 10^3/uL (0.0-0.1); ABS Eosinophils 0.2 10^3/uL (0.0-0.5); ABS Lymphocytes 2.7 10^3/uL (1.0-4.8); ABS Monocytes 1.2 10^3/uL (0.0-1.1); ABS Nucleated RBC 0.01 10^3/ul; Eosinophil % 1.4 %; Lymphocyte % 19.2 %; Mean Corpuscular Hemoglobin 32.4 pg (27-33); Mean Corpuscular Hgb Conc 34.4 g/dL (31-36); Mean Corpuscular Volume 94.2 fL (80-97); Mean Platelet Volume 6.7 fL (7.5-11.2); Nucleated Red Blood Cells % 0.1 %/100WBC (0.0-0.8); Platelet Count 241 10^3/uL (150-450); White Blood Count 14.2 10^3/uL (3.6-10.2)
[2024-05-14 07:11] LABS: Creatinine, Serum 2.46 mg/dL (0.67-1.17); Magnesium 1.9 mg/dL (1.9-2.7); Phosphorus 3.4 mg/dL (2.5-5.0); Potassium 4.5 mmol/L (3.5-5.0); eGFR CKD-EPI 25.8 (>60)
[2024-05-14] MEDS ORDERED: Midazolam 10 mg/10 ml VIAL 1 mg/ml 10 ml VIAL (10 mg) ONE (08:28)
[2024-05-14] MEDS ORDERED: fentaNYL 100 mcg/2 ml 50 MCG/ML VIAL ONE (08:28)
[2024-05-14] MEDS ORDERED: Flumazenil 0.5 mg/5 ml 0.1 MG/ML 5 ml VIAL IV PRN (10:17)
[2024-05-14] MEDS ORDERED: Naloxone 0.4 mg VIAL 0.4 mg/ml 1 ml VIAL IV PUSH PRN (10:17)
[2024-05-14] MEDS: fentaNYL 100 mcg/2 ml 50 MCG/ML VIAL IV SLOW PU ONE (11:16)
[2024-05-14] MEDS: Midazolam 10 mg/10 ml VIAL 1 mg/ml 10 ml VIAL (10 mg) IV SLOW PU ONE (11:17)
[2024-05-14] MEDS: Ondansetron 4 mg VIAL 2 MG/ML 2 ml VIAL IV ONE (11:17)
[2024-05-14] MEDS: Lactated Ringers 1000 ml BAG 1,000 ML IV ONE (12:11)
[2024-05-14 17:00] LABS: Ferritin 217.9 ng/mL (24-336)
[2024-05-15 05:44] LABS: ABS Basophils 0.1 10^3/uL (0.0-0.1); ABS Eosinophils 0.3 10^3/uL (0.0-0.5); ABS Lymphocytes 2.8 10^3/uL (1.0-4.8); ABS Monocytes 1.2 10^3/uL (0.0-1.1); ABS Neutrophils 10.3 10^3/uL (1.5-7.6); Eosinophil % 1.7 %; Hematocrit 31.3 % (38-53); Hemoglobin 10.7 g/dL (13.2-16.3); Lymphocyte % 19.4 %; Mean Corpuscular Hemoglobin 32.2 pg (27-33); Mean Corpuscular Hgb Conc 34.2 g/dL (31-36); Mean Corpuscular Volume 94.1 fL (80-97); Mean Platelet Volume 6.9 fL (7.5-11.2); Platelet Count 228 10^3/uL (150-450); Red Blood Count 3.33 10^6/uL (4.06-5.63); Red Cell Distribution Width 12.8 % (12-17); White Blood Count 14.6 10^3/uL (3.6-10.2)
[2024-05-15 06:01] LABS: Creatinine, Serum 2.44 mg/dL (0.67-1.17); Potassium 4.6 mmol/L (3.5-5.0); eGFR CKD-EPI 26.1 (>60)
[2024-05-15 14:23] VITALS: BP 129/74
== END 2024-05-15 15:26 | disposition home or self-care (01) ==
LOC: ED 12:07 → EDHOLD 12:07 → SUATTDRO 15:56 → MED 18:28
PROVIDERS: ADMIT Internal Medicine; ATTEND Student in an Organized Health Care Education/Training Program